=== PATIENT | male | born 1995 | race Caucasian/White ===

== ENCOUNTER 2021-11-18 16:58 | Emergency (ER) | payer OTHER ==
[~2021-11-18 16:58] MED LIST: BENTYL10 MG PO; ZOFRAN4 MG PO
== END 2021-11-18 20:21 | disposition left against medical advice (07) ==
LOC: FER 16:58
DX: R10.32 Left lower quadrant pain (principal); Z53.21 Procedure and treatment not carried out due to patient leaving prior to being seen by health care provider